=== PATIENT | male | born 1975 | race African-American/Black ===

== ENCOUNTER 2018-07-08 17:52 | Emergency (ER) | payer OTHER ==
[~2018-07-08] VITALS: Ht 177.8 cm; Wt 83.9 kg
--- NOTE | 2018-07-08 19:56 | NUR ---
PT AMBULATED TO ER #9 WITH A STEADY GAIT. PT IS C/O RT SIDED NECK PAIN X 3 DAYS.
--- NOTE | 2018-07-08 20:52 | NUR ---
ATTEMPTED AC IV INSERTION X 2 FOR CTA, UNSUCCESSFUL. PHILOMENA HESTER AT THE BEDSIDE.
[2018-07-08] MEDS: IV NS 0.9% 1,000 ML BAG IV ONE (21:08)
[2018-07-08 21:09] LABS: BASOPHILS # (AUTO) 0.2 /CMM (0.0-0.2); BASOPHILS % (AUTO) 1.3 % (0.0-2.0); EOSINOPHILS % (AUTO) 3.8 % (0.0-6.0); HEMATOCRIT 42 % (39-51); HEMOGLOBIN 13.9 g/dL (13.5-17.5); LYMPHOCYTES # (AUTO) 2.9 /CMM (0.8-4.8); LYMPHOCYTES % (AUTO) 24.6 % (20.0-44.0); MEAN CORPUSCULAR HGB CONC 33 g/dl (31.0-36.0); MEAN CORPUSCULAR VOLUME 91 fL (80-96); MONOCYTES # (AUTO) 0.9 /CMM (0.1-1.30); MONOCYTES % (AUTO) 7.4 % (2.0-12.0); NEUTROPHILS # (AUTO) 7.4 /CMM (1.8-8.9); NEUTROPHILS % (AUTO) 62.9 % (43.0-81.0); PLATELET COUNT (AUTO) 302 /CMM (150-450); RED BLOOD CELL COUNT(AUTO) 4.58 MIL/uL (4.5-6.0); WHITE BLOOD COUNT (AUTO) 11.8 K/uL (4.3-11.0)
[2018-07-08 21:14] LABS: CALCIUM, SERUM 8.9 mg/dL (8.5-10.1); CREATININE 0.7 mg/dL (0.6-1.3); POTASSIUM 4.3 mmol/L (3.5-5.1)
[2018-07-08] MEDS ORDERED: IOHEXOL-350 100 ML VIAL IV ONE (21:22)
--- NOTE | 2018-07-08 21:28 | NUR ---
PT AMBULATED TO THE BATHROOM WITH A STEADY GAIT. URINE SAMPLE OBTAINED AND SENT TO LAB.
--- NOTE | 2018-07-08 21:30 | NUR ---
PT LEFT FOR CT VIA [facility]
--- NOTE | 2018-07-08 22:06 | NUR ---
CALLING [facility] RE: CTA READS
--- NOTE | 2018-07-08 22:42 | NUR ---
IV removed. Catheter intact and site benign. Pressure and 4x4 applied to site. No bleeding noted. Patient discharged to home in stable condition. Written and verbal after care instructions given. Patient verbalizes understanding of instruction. PT REC'D A COPY OF ALL LABS, EKG, AND CT FINDINGS. VSS PT AMBULATED OUT WITH A STEADY GAIT.
[2018-07-08 22:43] VITALS: BP 138/87
== END 2018-07-08 22:45 | disposition home or self-care (01) ==
LOC: ER 18:05
DX: R42 Dizziness and giddiness (principal); M54.2 Cervicalgia; R51 Headache; M79.18 Myalgia, other site; F41.9 Anxiety disorder, unspecified; Z88.0 Allergy status to penicillin
CPT/HCPCS: 36415; 70496; 70498; 80048; 85025; 93005; 96360; 99284; J7030; Q9967

== ENCOUNTER 2018-11-22 23:03 | Emergency (ER) | payer OTHER ==
[~2018-11-22] VITALS: Ht 180.3 cm; Wt 86.2 kg
[2018-11-23] MEDS ORDERED: KETOROLAC TROMETHAMINE INJ 60 MG/2 ML VIAL IM ONE ×2 (01:30→01:32)
--- NOTE | 2018-11-23 01:59 | NUR ---
PT BACK FROM RADIOLOGY. PENDING CT RESULT.
[2018-11-23 02:09] LABS: APPEARANCE,URINE Clear (CLEAR); BILIRUBIN,URINE Negative (NEGATIVE); BLOOD, URINE Negative Ery/uL (NEGATIVE); COLOR,URINE Yellow (YELLOW); KETONES,URINE Negative (NEGATIVE); LEUKOCYTE ESTERASE ,URINE Negative (NEGATIVE); NITRITE, URINE Negative (NEGATIVE); PH,URINE 5.5 (5.0-8.0); PROTEIN,URINE Negative (NEGATIVE); UGLUCOSE Negative (NEGATIVE); UROBILINOGEN,URINE 0.2 EU/dL (0.2)
--- NOTE | 2018-11-23 03:06 | NUR ---
ER MD AT BEDSIDE TALKING TO PT REGARDING LAB AND CT RESULT. PENDING DISPOSITION.
--- NOTE | 2018-11-23 03:09 | NUR ---
Patient discharged to home in stable condition. Written and verbal after care instructions given. Patient verbalizes understanding of instruction. ambulatory with a steady gait
[2018-11-23 03:10] VITALS: BP 143/76
== END 2018-11-23 03:11 | disposition home or self-care (01) ==
LOC: ER 23:06
DX: R10.31 Right lower quadrant pain (principal); R10.11 Right upper quadrant pain; M54.5 Low back pain; F17.200 Nicotine dependence, unspecified, uncomplicated; J45.909 Unspecified asthma, uncomplicated; F41.9 Anxiety disorder, unspecified; Z87.442 Personal history of urinary calculi; Z88.0 Allergy status to penicillin; Z60.2 Problems related to living alone
CPT/HCPCS: 74176; 81001; 96372; 99284; 99406; J1885; J7060; 81000-TC